=== PATIENT | male | born 1985 | race African-American/Black ===

== ENCOUNTER 2017-04-21 11:46 | Emergency (ER) | payer OTHER ==
[~2017-04-21] VITALS: Ht 180.3 cm; Wt 95.3 kg
[~2017-04-21 11:46] MED LIST: BACTRIM DS 8001 TAB PO; MOTRIN800 MG PO; PERCOCET 5-3251 EACH PO; VIBRAMYCIN100 MG PO
[2017-04-21 11:50] VITALS: BP 133/84
--- NOTE | 2017-04-21 12:07 | ED SKIN/ALLERGY COMPLAINT ---
History of Present Illness General Chief Complaint: Skin Rash/ Abcess Stated Complaint: POISON SHAKEEL Source: patient Exam Limitations: no limitations Vital Signs & Intake/Output Vital Signs & Intake/Output Vital Signs Date Time Temp Pulse Resp B/P B/P Pulse O2 O2 Flow FiO2 Mean Ox Delivery Rate 04/21 1150 97.9 71 20 133/84 98 Room Air Allergies Uncoded Allergies: SEAFOOD (06/05/16) Triage Note: PT TO ED C/O POISON SHAKEEL TO B/L ARMS X A FEW DAYS. HAS BEEN USING CALAMINE LOTION WITH NO RELIEF. Triage Nurses Notes Reviewed? yes HPI: Patient presents requesting treatment for poison shakeel. Patient states that it started on his right hand but has now spread to his right arm and now his left arm. The rash is itchy. There is no pain. No fevers or chills. Past History Travel History Traveled to [place] past 21 day No Medical History Any Pertinent Medical History? none Neurological: NONE EENT: NONE Cardiovascular: NONE Respiratory: NONE Gastrointestinal: NONE Hepatic: NONE Renal: NONE Musculoskeletal: NONE Psychiatric: NONE Endocrine: NONE Blood Disorders: NONE Cancer(s): NONE HEEL SEWER/Reproductive: NONE Tetanus Vaccine: 06/06/16 Surgical History Surgical History: S/P ID ABSCESS Psychosocial History What is your primary language Kazakh Tobacco Use: Never used ETOH Use: denies use Illicit Drug Use: denies illicit drug use Family History Hx Contributory? No Review of Systems Review of Systems Constitutional: Reports: no symptoms. Respiratory: Reports: no symptoms. Cardiovascular: Reports: no symptoms. GI: Reports: no symptoms. Skin: Reports: see HPI, rash. Immunologic/Allergic: Reports: no symptoms. Physical Exam Physical Exam General Appearance: well developed/nourished, alert, awake Eyes: Bilateral: PERRL, EOMI. Neck: normal inspection, supple, full range of motion Respiratory: normal breath sounds, chest non-tender, no respiratory distress, lungs clear Cardiovascular: regular rate/rhythm, normal peripheral pulses Neurologic/Psych: no motor/sensory deficits, awake, alert, oriented x 3, normal gait, normal mood/affect Skin: rash Skin Problem Location: upper extremities Skin Problem Character: vesicular Progress Differential Diagnosis: contact dermatitis Plan of Care: STEROID CREAM Departure Departure Disposition: HOME OR SELF CARE Condition: Stable Clinical Impression Primary Impression: Poison shakeel Referrals: PATIENT HAS NO PRIMARY CARE DR (PCP/Family) Additional Instructions: USE STEROID CREAM TWICE A DAY RETURN FOR ANY CONCERNS Departure Forms: Customer Survey General Discharge Information
== END 2017-04-21 12:18 ==
LOC: ERH 11:46
DX: L23.7 Allergic contact dermatitis due to plants, except food (principal)